=== PATIENT | female | born 1935 | race Two or more races ===

== ENCOUNTER 2018-03-24 17:21 | Emergency (ER) | payer MEDICARE ==
[2018-03-24] MEDS: EPINEPHrine 1MG/10ML SYRINGE 1.5IN IV ×4 (17:26→17:29)
[2018-03-24] MEDS: SODIUM BICARBONATE 8.4% INJ 50 ML SYRINGE IV ×4 (17:27→17:34)
[2018-03-24] MEDS ORDERED: EPINEPHrine 1MG/10ML SYRINGE 1.5IN IV ×18 (17:32→18:10)
[2018-03-24] MEDS: ATROPINE SULF 1MG/10ML SYRINGE (J0461) IV ×4 (17:33→17:37)
[2018-03-24] MEDS: DOPamine HCL 400 MG in APPROPRIATE DILUENT 1 EA IV (17:42)
[2018-03-24] MEDS: ASPIRIN 81 MG CHEW TABLET XX ×2 (17:45)
[2018-03-24] MEDS ORDERED: SODIUM BICARBONATE 8.4% INJ 50 ML SYRINGE IV ×6 (17:47→18:12)
[2018-03-24] MEDS ORDERED: SODIUM BICARBONATE 8.4% INJ 50 ML SYRINGE As Ordered ×4 (17:48→18:04)
[2018-03-24] MEDS ORDERED: EPINEPHrine 1MG/10ML SYRINGE 1.5IN As Ordered ×4 (17:49→17:59)
[2018-03-24] MEDS: TENECTEPLASE 50 MG KIT (TNKase)(J3101) IV ×2 (18:02)
[2018-03-24 18:21] LABS: HEMATOCRIT 45.5 % (36.0-47.0); HEMOGLOBIN 13.3 g/dl (12.0-15.5); MEAN CORPUSCULAR HEMOGLOBIN 28.3 pg (27.0-33.0); MEAN CORPUSCULAR HGB CONC 29.2 g/dl (32.0-36.5); MEAN CORPUSCULAR VOLUME 96.8 fl (80.0-96.0); PLATELET COUNT, AUTOMATED 333 10^3/uL (150-450); RED CELL DISTRIBUTION WIDTH 13.2 % (11.5-14.5)
[2018-03-24 18:22] LABS: ADD MANUAL DIFFER YES; DIFF SLIDE NUMBER 186; POSITIVE DIFF POS FLAG; WHITE BLOOD COUNT 14.9 10^3/uL (4.0-10.0)
[2018-03-24 18:24] LABS: INR 1.38; PROTHROMBIN TIME 17.3 SECONDS (12.4-14.5)
[2018-03-24 18:25] LABS: PARTIAL THROMBOPLASTIN TIME 61.2 SECONDS (26.8-37.9)
[2018-03-24 18:36] LABS: ANION GAP 15 MEQ/L (8-16); BLOOD UREA NITROGEN 15 MG/DL (7-18); CALCIUM LEVEL 9.8 MG/DL (8.8-10.2); CARBON DIOXIDE LEVEL 24 MEQ/L (21-32); CHLORIDE LEVEL 99 MEQ/L (98-107); CK-MB VALUE MASS 3.3 NG/ML (<3.6); CPK CREATINE PHOSPHOKINASE 465 U/L (26-192); CREATININE FOR GFR 1.58 MG/DL (0.55-1.30); GLOMERULAR FILTRATION RATE 33.5 (>32); GLUCOSE, FASTING 241 MG/DL (70-100); SODIUM LEVEL 138 MEQ/L (136-145); TROPONIN I 0.07 NG/ML (< 0.10)
[2018-03-24 18:37] LABS: ATYPICAL LYMPH 8 % (0-5); EOSINOPHILS 5 % (0-5); LYMPHOCYTES 71 % (16-52); MONOCYTES 4 % (0-8); NEUTROPHILS 12 % (35-75); PLATELET ESTIMATE NORMAL (NORMAL)
[2018-03-24 18:44] LABS: POTASSIUM SERUM 7.2 MEQ/L (3.5-5.1)
[2018-03-24] MEDS ORDERED: TENECTEPLASE 50 MG KIT (TNKase)(J3101) ×2 (18:51)
[2018-03-24] MEDS ORDERED: DOPamine 400 MG/500 ML BAG IN D5W (800MCG/ML) (J1265) (18:51)
[2018-03-24] MEDS ORDERED: EPINEPHrine 1MG/10ML SYRINGE 1.5IN ×2 (18:51)
[2018-03-24] MEDS ORDERED: SODIUM BICARBONATE 8.4% INJ 50MEQ 50 ML VIAL ×2 (18:51)
[2018-03-24] MEDS ORDERED: ATROPINE SULF 1MG/10ML SYRINGE (J0461) ×2 (18:51)
== END 2018-03-24 20:16 | disposition expired ==
LOC: M ED 17:21
DX: I22.9 Subsequent ST elevation (STEMI) myocardial infarction of unspecified site (principal); I44.30 Unspecified atrioventricular block; I10 Essential (primary) hypertension; K21.9 Gastro-esophageal reflux disease without esophagitis; Z87.891 Personal history of nicotine dependence
CPT/HCPCS: J1265